=== PATIENT | female | born 1990 | race African-American/Black ===

== ENCOUNTER 2017-05-01 22:51 | Emergency (ER) | payer OTHER ==
[~2017-05-01] VITALS: Ht 160 cm; Wt 74.0 kg
[2017-05-02] MEDS ORDERED: SODIUM CHLORIDE 0.9% 1,000 ML IV ONE (03:17)
[2017-05-02] MEDS ORDERED: DIPHENHYDRAMINE 50MG/ML VIAL IV ONE (03:30)
[2017-05-02] MEDS ORDERED: METOCLOPRAMIDE HCL 10MG/2ML VIAL IV ONE (03:30)
[2017-05-02 03:47] LABS: BASOPHILS % 0.5 % (0.0-2.0); EOSINOPHILS % 0.8 % (0.0-5.0); HEMATOCRIT. 36.1 % (36.0-48.0); HEMOGLOBIN. 11.6 g/dL (12.0-16.0); LYMPHOCYTES % 29.7 % (20.0-50.0); MEAN CORPUSCULAR HEMOGLOBIN 23.1 pg (28.0-32.0); MEAN PLATELET VOLUME 7.8 fl (7.4-10.4); MONOCYTES % 10.7 % (2.0-8.0); NEUTROPHILS % 58.3 % (40.0-76.0); PLATELET 312 x1000/uL (130-400); RED BLOOD CELL COUNT 5.02 mill/uL (4.2-5.4); RED CELL DISTRIBUTION WIDTH 14.3 % (11.6-14.6)
[2017-05-02 03:56] LABS: CARBON DIOXIDE 31 mEq/L (21-32); CHLORIDE 104 mEq/L (98-107)
[2017-05-02 06:03] VITALS: BP 121/69
== END 2017-05-02 06:08 | disposition home or self-care (01) ==
LOC: ER 22:51
DX: R51 Headache (principal); J45.909 Unspecified asthma, uncomplicated
CPT/HCPCS: 36415; 70450; 80048; 81025; 85025; 96361; 96374; 96375; 99285; J1200; J2765; J7030; Z7610

== ENCOUNTER 2021-02-24 05:57 | Inpatient (IN) | payer OTHER ==
[~2021-02-24] VITALS: Ht 160 cm; Wt 77.6 kg
[2021-02-24] MEDS ORDERED: ACETAMINOPHEN 325MG TABLET PO STA (07:59)
[2021-02-24 08:58] LABS: CLARITY URINE CLEAR (CLEAR); COLOR URINE YELLOW (YELLOW); KETONES URINE TRACE (NEGATIVE); LEUKOCYTE ESTERASE URINE NEGATIVE (NEGATIVE); NITRITE URINE NEGATIVE (NEGATIVE); OCCULT BLOOD URINE 2+ (NEGATIVE); PROTEIN URINE 3+ (NEGATIVE); SPECIFIC GRAVITY URINE 1.019 (1.005-1.030); UROBILINOGEN URINE 0.2 E.U./dL (0.2-1.0)
[2021-02-24 09:23] LABS: BASOPHILS % 0.2 % (0.0-2.0); HEMATOCRIT. 41.3 % (36.0-48.0); HEMOGLOBIN. 13.2 g/dL (12.0-16.0); LYMPHOCYTES % 18.1 % (20.0-50.0); MEAN CORPUSCULAR HEMOGLOBIN 22.5 pg (28.0-32.0); MEAN CORPUSCULAR VOLUME 70.4 fL (81.0-99.0); MEAN PLATELET VOLUME 8.8 fl (7.4-10.4); MONOCYTES % 12.5 % (2.0-8.0); NEUTROPHILS % 69.2 % (40.0-76.0); PLATELET 206 x1000/uL (130-400); RED BLOOD CELL COUNT 5.87 mill/uL (4.2-5.4); RED CELL DISTRIBUTION WIDTH 14.9 % (11.6-14.6)
[2021-02-24 09:27] LABS: CHLORIDE 101 mEq/L (98-107)
[2021-02-24 09:34] LABS: D-DIMER 2.09 mg/L FEU (<0.50); PROTHROMBIN TIME 10.4 sec (9.6-11.0)
[2021-02-24 09:36] LABS: CREATINE KINASE 629 IU/L (26-192)
[2021-02-24] MEDS ORDERED: DEXAMETHASONE 4MG/ML 1ML VIAL IV ONE (09:45)
[2021-02-24] MEDS ORDERED: CEFTRIAXONE 1 G PREMIX 50 ML IV ONE (09:45)
[2021-02-24] MEDS ORDERED: AZITHROMYCIN 500 MG in DEXT 5% WATER 250 ML IV ONE (09:45)
[2021-02-24 10:31] LABS: BG CARBOXYHEMOGLOBIN 0.6 % (0.5-1.5); BG DEOXYHEMOGLOBIN 8.8 % (0.0-5.0); BG FRACTION INSPIRED OXYGEN 28; BG HCO3 ACT 24.2 mmol/L (22.0-26.0); BG METHEMOGLOBIN 0.3 % (0.0-1.5); BG OXYGEN SATURATION 91.1 % (92.0-98.5); BG OXYHEMOGLOBIN 90.3 % (94.0-97.0); BG PO2 58.1 mmHg (75.0-100.0); BG SAMPLE SITE RIGHT RADIAL; BG TOTAL HEMOGLOBIN 13.4 g/dL (12.0-18.0); BG VENT MODE NASAL CANNULA
[2021-02-24] MEDS ORDERED: ENOXAPARIN 80MG/0.8ML SYR SUBCUT ONE (11:00)
[2021-02-24] MEDS ORDERED: DOCUSATE SODIUM 100MG CAPSULE PO PRN (11:15)
[2021-02-24] MEDS ORDERED: DEXTROSE 50% WATER 50ML SYRINGE IV PRN (11:15)
[2021-02-24] MEDS ORDERED: ACETAMINOPHEN 650MG/20.3ML UDC GT PRN ×2 (11:15)
[2021-02-24] MEDS ORDERED: NA PHOS,M-B/NA PHOS,DI-BA ENEMA 118ML PR PRN (11:15)
[2021-02-24] MEDS ORDERED: ACETAMINOPHEN 325MG TABLET PO PRN ×2 (11:15)
[2021-02-24] MEDS ORDERED: MAGNESIUM/ALUMINUM HYDROXIDE/SIMETHICONE 30ML UDC PO PRN (11:15)
[2021-02-24] MEDS ORDERED: ONDANSETRON HCL 4MG/2ML INJ IV PRN (11:15)
[2021-02-24] MEDS ORDERED: DIPHENHYDRAMINE 50MG/ML VIAL IV PRN (11:15)
[2021-02-24] MEDS ORDERED: CLONIDINE 0.1MG TABLET PO PRN (11:15)
[2021-02-24] MEDS ORDERED: LIDOCAINE HCL/PF 1% 2ML VIAL ONE (12:00)
[2021-02-24] MEDS: BLOOD SUGAR DIAGNOSTIC STRIP TEST SCH ×3 (13:00→21:00)
[2021-02-24] MEDS: INSULIN LISPRO 100 UNITS/ML SUBCUT SCH ×3 (14:47→21:00)
[2021-02-24 15:39] LABS: *AMPHETAMINES SCREEN URINE NEGATIVE (NEGATIVE); *BARBITURATES SCREEN URINE NEGATIVE (NEGATIVE); *BENZODIAZEPINES SCREEN URINE NEGATIVE (NEGATIVE); *COCAINE SCREEN URINE NEGATIVE (NEGATIVE); METHADONE URINE SCREEN NEGATIVE (NEGATIVE)
[2021-02-24 15:40] LABS: OPIATES URINE SCREEN NEGATIVE (NEGATIVE); PHENCYCLIDINE URINE SCREEN NEGATIVE (NEGATIVE)
[2021-02-24 15:46] LABS: CANNABINOID URINE SCREEN PRESUMTIVE POSITIVE (NEGATIVE)
[2021-02-24 21:30] VITALS: BP 114/67
[2021-02-24 22:00] VITALS: BP 114/67
[2021-02-25] VITALS: BP 112/65
[2021-02-25 04:00] VITALS: BP 98/54
[2021-02-25] MEDS: BLOOD SUGAR DIAGNOSTIC STRIP TEST SCH ×4 (07:40→21:16)
[2021-02-25 08:00] VITALS: BP 109/70
[2021-02-25] MEDS: DEXAMETHASONE 10 MG/ML VIAL IV SCH (08:10)
[2021-02-25] MEDS: FAMOTIDINE 20MG/2ML VIAL IV SCH (08:10)
[2021-02-25] MEDS: ENOXAPARIN 40MG/0.4ML SYR SUBCUT SCH (08:10)
[2021-02-25] MEDS: INSULIN LISPRO 100 UNITS/ML SUBCUT SCH ×4 (08:11→21:16)
[2021-02-25 08:19] LABS: HEMATOCRIT. 38.7 % (36.0-48.0); HEMOGLOBIN. 12.6 g/dL (12.0-16.0); MEAN CORPUSCULAR HEMOGLOBIN 22.8 pg (28.0-32.0); MEAN CORPUSCULAR VOLUME 69.9 fL (81.0-99.0); MEAN PLATELET VOLUME 9.4 fl (7.4-10.4); PLATELET 249 x1000/uL (130-400); RED BLOOD CELL COUNT 5.54 mill/uL (4.2-5.4); RED CELL DISTRIBUTION WIDTH 14.7 % (11.6-14.6)
[2021-02-25 08:34] LABS: CHLORIDE 102 mEq/L (98-107)
[2021-02-25 08:42] LABS: LDL CHOLESTEROL 96 mg/dL (5-100)
[2021-02-25 08:43] LABS: HDL CHOLESTEROL 30 mg/dL (40-59)
[2021-02-25] MEDS ORDERED: AZITHROMYCIN 500 MG in DEXT 5% WATER 250 ML IV SCH (09:00)
[2021-02-25] MEDS ORDERED: DEXAMETHASONE 10 MG/ML VIAL IV SCH (09:00)
[2021-02-25 12:00] VITALS: BP 113/73
[2021-02-25] MEDS ORDERED: CEFTRIAXONE 1 G PREMIX 50 ML IV SCH (12:00)
[2021-02-25] MEDS: CEFTRIAXONE 1,000 MG in DEXTROSE 5% WATER 50 ML IV SCH (12:09)
[2021-02-25] MEDS: AZITHROMYCIN 500MG in DEXTROSE 5% WATER 250ML IV SCH (12:09)
[2021-02-25 16:00] VITALS: BP 116/73
[2021-02-25 20:00] VITALS: BP 111/77
[2021-02-26] VITALS: BP 114/73
[2021-02-26 04:00] VITALS: BP 108/72
[2021-02-26] MEDS: BLOOD SUGAR DIAGNOSTIC STRIP TEST SCH ×4 (07:17→21:00)
[2021-02-26] MEDS: INSULIN LISPRO 100 UNITS/ML SUBCUT SCH ×4 (07:17→21:23)
[2021-02-26 08:00] VITALS: BP 100/60
[2021-02-26] MEDS: FAMOTIDINE 20MG/2ML VIAL IV SCH (08:18)
[2021-02-26] MEDS: DEXAMETHASONE 10 MG/ML VIAL IV SCH (08:19)
[2021-02-26] MEDS: ENOXAPARIN 40MG/0.4ML SYR SUBCUT SCH (08:19)
[2021-02-26] MEDS: AZITHROMYCIN 500MG in DEXTROSE 5% WATER 250ML IV SCH (10:00)
[2021-02-26 11:02] LABS: PLATELET ESTIMATE NORMAL
[2021-02-26] MEDS: CEFTRIAXONE 1,000 MG in DEXTROSE 5% WATER 50 ML IV SCH (11:12)
[2021-02-26 12:00] VITALS: BP 105/71
[2021-02-26] MEDS: GUAIFENESIN 200MG/10ML SUGAR FREE UDC PO PRN (15:16)
[2021-02-26 16:00] VITALS: BP 110/71
[2021-02-26 20:00] VITALS: BP 109/68
[2021-02-26 23:01] LABS: BG BASE EXCESS 3.1 mmol/L (-2.0-2.0); BG CARBOXYHEMOGLOBIN 0.3 % (0.5-1.5); BG DEOXYHEMOGLOBIN 5.7 % (0.0-5.0); BG FRACTION INSPIRED OXYGEN 21; BG HCO3 ACT 26.5 mmol/L (22.0-26.0); BG METHEMOGLOBIN 0.2 % (0.0-1.5); BG OXYGEN SATURATION 94.3 % (92.0-98.5); BG OXYHEMOGLOBIN 93.8 % (94.0-97.0); BG PCO2 36.8 mmHg (35.0-45.0); BG PH 7.476 (7.350-7.450); BG PO2 67.1 mmHg (75.0-100.0); BG SAMPLE SITE RIGHT BRACHIAL; BG TOTAL HEMOGLOBIN 13.1 g/dL (12.0-18.0); BG VENT MODE ROOM AIR
[2021-02-27] VITALS: BP 104/67
[2021-02-27 04:00] VITALS: BP 106/64
[2021-02-27] MEDS: BLOOD SUGAR DIAGNOSTIC STRIP TEST SCH ×2 (07:31→12:29)
[2021-02-27] MEDS: INSULIN LISPRO 100 UNITS/ML SUBCUT SCH ×2 (07:31→12:40)
[2021-02-27 08:01] VITALS: BP 93/65
[2021-02-27] MEDS: FAMOTIDINE 20MG/2ML VIAL IV SCH (08:35)
[2021-02-27] MEDS: ENOXAPARIN 40MG/0.4ML SYR SUBCUT SCH (08:36)
[2021-02-27] MEDS: GUAIFENESIN 200MG/10ML SUGAR FREE UDC PO PRN (09:04)
[2021-02-27] MEDS: DEXAMETHASONE 10 MG/ML VIAL IV SCH (09:04)
[2021-02-27] MEDS ORDERED: AZITHROMYCIN 500 MG TABLET PO SCH (11:00)
[2021-02-27] MEDS: CEFTRIAXONE 1,000 MG in DEXTROSE 5% WATER 50 ML IV SCH (11:01)
[2021-02-27] MEDS ORDERED: DEX6 GT (11:23)
[2021-02-27] MEDS ORDERED: AZIT500T3 MT (11:23)
[2021-02-27] MEDS ORDERED: FAMO40TA70 MT (11:23)
[2021-02-27 11:33] VITALS: BP 102/59
[2021-02-27] MEDS ORDERED: BENZ-16 MT (11:47)
[2021-02-27] MEDS ORDERED: ALBU18HF2 IH (11:47)
[2021-02-27 12:00] VITALS: BP 102/59
== END 2021-02-27 14:45 | disposition home or self-care (01) | DRG 871 ==
LOC: ER 05:57 → 7WST 11:01 → EDBEDREQ 11:06 → EDBEDREQSVC 11:06 → EDBEDREQTM 19:30 → EDBEDREQSVC 19:30 → ENRESERV 20:16
PROVIDERS: ADMIT Family Medicine; ATTEND Family Medicine
DX: A41.89 Other specified sepsis (principal); U07.1 COVID-19; J96.01 Acute respiratory failure with hypoxia; J12.82 Pneumonia due to coronavirus disease 2019; E44.1 Mild protein-calorie malnutrition; Z68.30 Body mass index [BMI] 30.0-30.9, adult; R74.01 Elevation of levels of liver transaminase levels; D89.839 Cytokine release syndrome, grade unspecified; E11.9 Type 2 diabetes mellitus without complications; E66.9 Obesity, unspecified; J45.909 Unspecified asthma, uncomplicated
CPT/HCPCS: 36415; 36600; 71045; 80053; 80061; 80305; 81003; 82375; 82550; 82728; 82805; 82962; 83036; 83605; 83615; 84145; 84484; 85025; 85379; 85384; 86140; 87426; 87804; 93005; 99291; C9803; J0456; J0696; J1100; J1650; J1815; J3490; J7040; J7060; U0003; U0005